=== PATIENT | female | born 1980 | race Caucasian/White ===

== ENCOUNTER → 2018-01-04 11:12 | Outpatient (CLI) | payer OTHER, SELFPAY ==
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
== END ==
PROVIDERS: Family Provider Physician Assistant; PCP Physician Assistant; Visit Provider Physician Assistant
DX: M79.672 Pain in left foot (principal)
CPT/HCPCS: 73630

== ENCOUNTER → 2018-01-13 10:59 | Outpatient (CLI) | payer OTHER, SELFPAY ==
--- NOTE | 2018-01-13 11:01 | DI.RAD.S_ITS ---
PROCEDURE: XR WRIST RT MIN 3V INDICATIONS: Bilateral wrist pain - scaphoid area TECHNIQUE: 4 views of the wrist were acquired. COMPARISON: None. FINDINGS: Bones: No fractures or dislocations. No suspicious bony lesions. Scaphoid view: Normal scaphoid Soft tissues: No suspicious soft tissue calcifications. No displacement of the pronator fat line. IMPRESSION: Normal wrist Dictated by: Paresh Brooke M.D. on 01/13/2018 at 11:31 Approved by: Paresh Brooke M.D. on 01/13/2018 at 11:32
--- NOTE | 2018-01-13 11:01 | DI.RAD.S_ITS ---
PROCEDURE: XR WRIST LT MIN 3V INDICATIONS: Bilateral wrist pain - scaphoid area TECHNIQUE: 4 views of the wrist were acquired. COMPARISON: None. FINDINGS: Bones: No fractures or dislocations. No suspicious bony lesions. Scaphoid view: Normal scaphoid Soft tissues: No suspicious soft tissue calcifications. No displacement of the pronator fat line. IMPRESSION: Normal wrist Dictated by: Paresh Brooke M.D. on 01/13/2018 at 11:30 Approved by: Paresh Brooke M.D. on 01/13/2018 at 11:31
== END ==
PROVIDERS: Family Provider Physician Assistant; PCP Physician Assistant; Visit Provider Physician Assistant
DX: M25.532 Pain in left wrist (principal); M25.531 Pain in right wrist
CPT/HCPCS: 73110

== ENCOUNTER → 2018-01-18 10:14 | Outpatient (CLI) | payer OTHER, SELFPAY ==
[2018-01-18 11:20] LABS: Alanine Aminotransferase 35 IU/L (9-52); Albumin 4.1 g/dL (3.5-5.0); Albumin Globulin Ratio 1.4 (1.0-2.8); Alkaline Phosphatase 47 U/L (38-126); Aspartate Aminotransferase 17 IU/L (14-36); BUN Creatinine Ratio 24.3 (6-22); Bilirubin Total 0.5 mg/dL (0.2-1.3); Blood Urea Nitrogen 17 mg/dL (7-17); Calcium 9.3 mg/dL (8.4-10.2); Carbon Dioxide 26 mmol/L (22-32); Chloride 103 mmol/L (98-107); Cholesterol 221 mg/dL (140-199); Estimated Glomerular Filt Rate > 60.0 mL/min (>60); Glucose 91 mg/dL (70-100); HDL Cholesterol 44 mg/dL (40-60); HEMOLYSIS < 15 (0-50); LDL Cholesterol Calculated 140 mg/dL (<100); Potassium 4.3 mmol/L (3.4-5.1); Sodium 139 mmol/L (137-145); Total Protein 7.1 g/dL (6.3-8.2); Triglycerides 187 mg/dL (35-150)
[2018-01-18 11:32] LABS: Free T4, Direct Thyroxine 0.92 ng/dL (0.78-2.19)
[2018-01-18 11:46] LABS: Thyroid Stimulating Hormone 1.16 uIU/mL (0.47-4.68)
== END ==
PROVIDERS: PCP Physician Assistant; Visit Provider Physician Assistant
DX: Q21.1 Atrial septal defect (principal); E03.8 Other specified hypothyroidism; E06.3 Autoimmune thyroiditis
CPT/HCPCS: 36415; 80053; 80061; 84439; 84443

== ENCOUNTER → 2018-08-13 07:19 | Outpatient (CLI) | payer OTHER, SELFPAY ==
[2018-08-13 09:04] LABS: Free T4, Direct Thyroxine 1.12 ng/dL (0.78-2.19)
[2018-08-13 09:18] LABS: Thyroid Stimulating Hormone 1.35 uIU/mL (0.47-4.68)
== END ==
PROVIDERS: Family Provider Physician Assistant; PCP Physician Assistant; Visit Provider Internal Medicine Endocrinology, Diabetes & Metabolism
DX: E06.3 Autoimmune thyroiditis (principal)
CPT/HCPCS: 36415; 84439; 84443

== ENCOUNTER → 2019-01-19 09:29 | Outpatient (CLI) | payer OTHER, SELFPAY ==
[2019-01-19 11:08] LABS: Alanine Aminotransferase 11 IU/L (9-52); Albumin 4.3 g/dL (3.5-5.0); Albumin Globulin Ratio 1.5 (1.0-2.8); Alkaline Phosphatase 51 U/L (38-126); Aspartate Aminotransferase 18 IU/L (14-36); BUN Creatinine Ratio 16.3 (6-22); Bilirubin Total 0.5 mg/dL (0.2-1.3); Blood Urea Nitrogen 13 mg/dL (7-17); Calcium 9.5 mg/dL (8.4-10.2); Carbon Dioxide 27 mmol/L (22-32); Chloride 104 mmol/L (98-107); Cholesterol 255 mg/dL (140-199); Estimated Glomerular Filt Rate > 60.0 mL/min (>60); Globulin 2.8 g/dL (1.7-4.1); Glucose 96 mg/dL (70-100); HDL Cholesterol 40 mg/dL (40-60); HEMOLYSIS < 15 (0-50); LDL Cholesterol Calculated 157 mg/dL (<100); Potassium 4.9 mmol/L (3.4-5.1); Sodium 140 mmol/L (137-145); Total Protein 7.1 g/dL (6.3-8.2); Triglycerides 288 mg/dL (35-150)
[2019-01-19 11:38] LABS: Thyroid Stimulating Hormone 1.01 uIU/mL (0.47-4.68)
== END ==
PROVIDERS: Family Provider Internal Medicine Endocrinology, Diabetes & Metabolism; PCP Physician Assistant; Visit Provider Physician Assistant
DX: E03.8 Other specified hypothyroidism (principal); E06.3 Autoimmune thyroiditis
CPT/HCPCS: 36415; 80053; 80061; 84439; 84443

== ENCOUNTER → 2019-01-28 11:40 | Outpatient (CLI) | payer OTHER, SELFPAY ==
--- NOTE | 2019-01-28 11:45 | DI.MG.S_ITS ---
BILATERAL DIGITAL SCREENING MAMMOGRAM 3D/2D WITH CAD: 01/28/2019 CLINICAL: Routine screening. Baseline exam. No prior exams were available for comparison. The tissue of both breasts is predominantly fatty. Current study was also evaluated with a Computer Aided Detection (CAD) system. No significant masses, calcifications, or other findings are seen in either breast. IMPRESSION: NEGATIVE There is no mammographic evidence of malignancy. A 1 year screening mammogram is recommended. This exam was interpreted at Station ID: [id number]. NOTE: For mammograms, a report in lay terms will be sent to the patient. Approximately 15% of breast malignancies will not be visualized mammographically. In the management of a palpable breast mass, a negative mammogram must not discourage biopsy of a clinically suspicious lesion. Electronically Signed By: Frankie bryant/vin:01/28/2019 17:05:09 letter sent: Normal Exam ACR BI-RADS Category 1: Negative 3341F
== END ==
PROVIDERS: Family Provider Internal Medicine Endocrinology, Diabetes & Metabolism; PCP Physician Assistant; Visit Provider Physician Assistant
DX: Z12.31 Encounter for screening mammogram for malignant neoplasm of breast (principal)
CPT/HCPCS: 77063; 77067

== ENCOUNTER → 2019-06-24 07:37 | Outpatient (CLI) | payer OTHER, SELFPAY ==
[2019-06-24 09:26] LABS: Cholesterol 239 mg/dL (140-199); HDL Cholesterol 44 mg/dL (40-60); LDL Cholesterol Calculated 157 mg/dL (<100); Triglycerides 191 mg/dL (35-150)
== END ==
PROVIDERS: PCP Physician Assistant; Visit Provider Physician Assistant
DX: E03.8 Other specified hypothyroidism (principal); E06.3 Autoimmune thyroiditis; E78.2 Mixed hyperlipidemia
CPT/HCPCS: 36415; 80061

== ENCOUNTER → 2019-09-10 11:28 | Outpatient (CLI) | payer OTHER, SELFPAY ==
[2019-09-10 13:01] LABS: TSH w/ Reflex to FT4 0.98 uIU/mL (0.47-4.68)
== END ==
PROVIDERS: PCP Physician Assistant; Referring Provider Internal Medicine Endocrinology, Diabetes & Metabolism; Visit Provider Internal Medicine Endocrinology, Diabetes & Metabolism
DX: E06.3 Autoimmune thyroiditis (principal)
CPT/HCPCS: 36415; 84443

== ENCOUNTER → 2020-02-09 10:23 | Outpatient (CLI) | payer OTHER, SELFPAY ==
--- NOTE | 2020-02-09 09:44 | DI.MG.S_ITS ---
BILATERAL DIGITAL SCREENING MAMMOGRAM 3D/2D WITH CAD: 02/09/2020 CLINICAL: Routine screening. Comparison is made to exam dated: 01/28/2019 [facility]. The tissue of both breasts is predominantly fatty. Current study was also evaluated with a Computer Aided Detection (CAD) system. No significant masses, calcifications, or other findings are seen in either breast. There has been no significant interval change. IMPRESSION: NEGATIVE There is no mammographic evidence of malignancy. A 1 year screening mammogram is recommended. This exam was interpreted at Station ID: [id number]. NOTE: For mammograms, a report in lay terms will be sent to the patient. Approximately 15% of breast malignancies will not be visualized mammographically. In the management of a palpable breast mass, a negative mammogram must not discourage biopsy of a clinically suspicious lesion. Electronically Signed By: Emigdio mares/vin:02/09/2020 13:54:06 letter sent: Normal Exam ACR BI-RADS Category 1: Negative 3341F
== END ==
PROVIDERS: PCP Registered Nurse Diabetes Educator; Referring Provider Registered Nurse Diabetes Educator; Visit Provider Physician Assistant
DX: Z12.31 Encounter for screening mammogram for malignant neoplasm of breast (principal)
CPT/HCPCS: 77063; 77067

== ENCOUNTER → 2020-06-25 16:27 | Outpatient (CLI) | payer OTHER, SELFPAY | PROVIDERS: PCP Registered Nurse Diabetes Educator; Visit Provider Registered Nurse | DX: L03.90 Cellulitis, unspecified (principal) | CPT/HCPCS: 87070; 87075; 87205 ==

== ENCOUNTER → 2020-10-10 07:44 | Outpatient (CLI) | payer OTHER, SELFPAY ==
[2020-10-10 08:11] LABS: Add Manual Diff / Slide Review NO; Basophils Absolute Auto 0 /uL (0-100); Basophils Percent Auto 0.3 % (0-2); Eosinophils Absolute Auto 100 /uL (0-450); Hematocrit 36.6 % (36-46); Hemoglobin 12.8 g/dL (12.0-16.0); Lymphocytes Absolute Auto 1300 /uL (1100-4500); Lymphocytes Percent Auto 33.5 % (25-40); Mean Corpuscular Hemoglobin 31.8 PG (26-34); Mean Corpuscular Volume 90.7 fL (80-100); Monocytes Absolute Auto 300 /uL (0-900); Monocytes Percent Auto 7.8 % (3-14); Neutrophils Absolute Auto 2300 /uL (1500-7000); Neutrophils Percent Auto 56.4 % (50-75); Platelet Count 124 X10^3/uL (150-400); Red Blood Cell Count 4.04 X10^6/uL (4.0-5.2); Red Cell Distribution Width 13.7 % (11.6-14.8)
[2020-10-10 08:28] LABS: Alanine Aminotransferase 15 IU/L (<35); Albumin 4.3 g/dL (3.5-5.0); Albumin Globulin Ratio 1.6 (1.0-2.8); Alkaline Phosphatase 49 U/L (38-126); Aspartate Aminotransferase 26 IU/L (14-36); BUN Creatinine Ratio 20.3 (6-22); Bilirubin Total 0.5 mg/dL (0.2-1.3); Blood Urea Nitrogen 16 mg/dL (7-17); Calcium 9.3 mg/dL (8.4-10.2); Carbon Dioxide 26 mmol/L (22-32); Chloride 104 mmol/L (98-107); Cholesterol 227 mg/dL (140-199); Estimated Glomerular Filt Rate > 60.0 mL/min (>60); Globulin 2.7 g/dL (1.7-4.1); Glucose 93 mg/dL (70-100); HDL Cholesterol 44 mg/dL (40-60); HEMOLYSIS < 15 (0-50); LDL Cholesterol Calculated 155 mg/dL (<100); Potassium 4.3 mmol/L (3.4-5.1); Sodium 136 mmol/L (137-145); Triglycerides 141 mg/dL (35-150)
[2020-10-10 09:10] LABS: TSH w/ Reflex to FT4 1.92 uIU/mL (0.47-4.68)
== END ==
PROVIDERS: PCP Registered Nurse Diabetes Educator; Referring Provider Registered Nurse Diabetes Educator; Visit Provider Registered Nurse Diabetes Educator
DX: E78.2 Mixed hyperlipidemia (principal); E03.8 Other specified hypothyroidism; E06.3 Autoimmune thyroiditis
CPT/HCPCS: 36415; 80053; 80061; 84443; 85025

== ENCOUNTER → 2020-11-10 12:21 | Outpatient (CLI) | payer OTHER, SELFPAY ==
[2020-11-10 13:24] LABS: Hematocrit 38.6 % (36-46); Hemoglobin 13.4 g/dL (12.0-16.0); Mean Corpuscular HGB Conc 34.8 % (30-36); Mean Corpuscular Hemoglobin 32.2 PG (26-34); Mean Corpuscular Volume 92.5 fL (80-100); Platelet Count 124 X10^3/uL (150-400); Red Blood Cell Count 4.17 X10^6/uL (4.0-5.2); Red Cell Distribution Width 14.6 % (11.6-14.8); White Blood Cell Count 5.2 X10^3/uL (4.5-11.0)
[2020-11-10 14:56] LABS: Anisocytosis 1+; Neutrophils Absolute Manual 2860 /uL (3000-5900); Total Cells Counted 100
== END ==
PROVIDERS: PCP Registered Nurse Diabetes Educator; Referring Provider Registered Nurse Diabetes Educator; Visit Provider Registered Nurse Diabetes Educator
DX: D69.6 Thrombocytopenia, unspecified (principal)
CPT/HCPCS: 36415; 85025

== ENCOUNTER → 2020-11-15 13:58 | Outpatient (CLI) | payer OTHER, SELFPAY ==
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
[2020-11-15 15:35] LABS: Erythrocyte Sedimentation Rate 10 MM/HR (0-20)
[2020-11-15 15:40] LABS: C-Reactive Protein Quant 0.9 mg/dL (<1.0)
[2020-11-15 15:42] LABS: Rheumatoid Factor < 8.6 IU/mL (<12.0)
[2020-11-18 16:36] LABS: ANA Screen, IFA Positive (.)
[2020-11-19 21:07] LABS: CCP Antibodies IgG/IgA 3 units (0-19)
== END ==
PROVIDERS: PCP Registered Nurse Diabetes Educator; Referring Provider Registered Nurse Diabetes Educator; Visit Provider Registered Nurse Diabetes Educator
DX: M79.641 Pain in right hand (principal); M79.642 Pain in left hand; D69.6 Thrombocytopenia, unspecified; R79.89 Other specified abnormal findings of blood chemistry
CPT/HCPCS: 36415; 73130; 85651; 86038; 86140; 86200; 86430

== ENCOUNTER 2021-02-14 11:24 | Emergency (ER) | payer OTHER, SELFPAY ==
[2021-02-14 11:57] VITALS: BP 127/73; PULSE 90; RESP 14; TEMP 36.3; O2SAT 99; BMI 36.7
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
[2021-02-14 14:48] VITALS: BP 113/71; PULSE 70; RESP 16; O2SAT 99
== END 2021-02-14 15:02 | disposition home or self-care (01) ==
PROVIDERS: Emergency Provider Emergency Medicine; PCP Registered Nurse Diabetes Educator
DX: M62.838 Other muscle spasm (principal); V89.2XXA Person injured in unspecified motor-vehicle accident, traffic, initial encounter
CPT/HCPCS: 72125; 99284

== ENCOUNTER → 2021-02-25 14:38 | Outpatient (CLI) | payer OTHER, SELFPAY ==
--- NOTE | 2021-02-25 14:39 | DI.RAD.S_ITS ---
PROCEDURE: XR LUMBAR SPINE 2-3V INDICATIONS: back pain; injury TECHNIQUE: 3 views of the lumbar spine were acquired. COMPARISON: None. FINDINGS: Bones: 5 [id number] vertebrae are present. Mild levo curvature centered at the L3 level. Mild early disc degeneration at the L5-S1 level.. No vertebral body compression fractures. No suspicious bony lesions. Soft tissues: Overlying bowel gas pattern is normal. No suspicious soft tissue calcifications. IMPRESSION: Mild L5-S1 early disc degeneration. Dictated by: Lyle SALAZAR Interpreted: Zoila Paulino MD on 02/25/2021 at 15:28 Transcribed by: YANNICK on 02/25/2021 at 15:29 Approved by: Zoila Paulino M.D. on 02/25/2021 at 16:33
--- NOTE | 2021-02-25 14:39 | DI.RAD.S_ITS ---
PROCEDURE: XR THORACIC SPINE 2V INDICATIONS: back pain; injury TECHNIQUE: 3 views of the thoracic spine were acquired. COMPARISON: None. FINDINGS: Bones: No fractures or dislocations. No suspicious bony lesions. 12 pairs of ribs are noted, and appear intact where visualized. Trace dextrocurvature centered at the T11 level. Soft tissues: No paravertebral stripe thickening. IMPRESSION: Trace dextrocurvature; otherwise normal T-spine. Dictated by: Lyle Spears [facility] Interpreted: Zoila Paulino MD on 02/25/2021 at 15:29 Transcribed by: YANNICK on 02/25/2021 at 15:29 Approved by: Zoila Paulino M.D. on 02/25/2021 at 16:34
== END ==
PROVIDERS: PCP Registered Nurse Diabetes Educator; Referring Provider Registered Nurse; Visit Provider Registered Nurse
DX: M54.9 Dorsalgia, unspecified (principal); S39.92XA Unspecified injury of lower back, initial encounter; S29.9XXA Unspecified injury of thorax, initial encounter; M51.37 Other intervertebral disc degeneration, lumbosacral region; V89.2XXA Person injured in unspecified motor-vehicle accident, traffic, initial encounter
CPT/HCPCS: 72070; 72100

== ENCOUNTER → 2021-04-04 16:36 | Outpatient (CLI) | payer OTHER, SELFPAY ==
--- NOTE | 2021-04-04 | DI.MG.S_ITS ---
BILATERAL DIGITAL SCREENING MAMMOGRAM 3D/2D WITH CAD: 04/04/2021 CLINICAL: Routine screening. Comparison is made to exams dated: 02/09/2020 mammogram and 01/28/2019 mammogram - [facility]. There are scattered fibroglandular elements in both breasts. Current study was also evaluated with a Computer Aided Detection (CAD) system. There are benign calcifications in both breasts. No significant masses, calcifications, or other findings are seen in either breast. There has been no significant interval change. IMPRESSION: BENIGN There is no mammographic evidence of malignancy. A 1 year screening mammogram is recommended. This exam was interpreted at Station ID: [id number]. NOTE: For mammograms, a report in lay terms will be sent to the patient. Approximately 15% of breast malignancies will not be visualized mammographically. In the management of a palpable breast mass, a negative mammogram must not discourage biopsy of a clinically suspicious lesion. Electronically Signed By: Frankie bryant/vin:04/04/2021 17:13:50 letter sent: Normal Exam ACR BI-RADS Category 2: Benign Finding(s) 3342F
== END ==
PROVIDERS: Family Provider Registered Nurse Diabetes Educator; PCP Registered Nurse Diabetes Educator; Referring Provider Registered Nurse Diabetes Educator; Visit Provider Registered Nurse Diabetes Educator
DX: Z12.31 Encounter for screening mammogram for malignant neoplasm of breast (principal)
CPT/HCPCS: 77063; 77067

== ENCOUNTER 2021-08-19 16:45 | Outpatient (RCR) | payer OTHER, SELFPAY ==
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
== END 2021-08-20 07:31 ==
LOC: PHYS 16:45
PROVIDERS: Family Provider Registered Nurse Diabetes Educator; PCP Registered Nurse Diabetes Educator; Referring Provider Registered Nurse; Visit Provider Registered Nurse
DX: M54.2 Cervicalgia (principal); M54.6 Pain in thoracic spine; M25.69 Stiffness of other specified joint, not elsewhere classified; V43.51XD Car driver injured in collision with sport utility vehicle in traffic accident, subsequent encounter
CPT/HCPCS: 97110; 97140; 97162

== ENCOUNTER → 2022-01-22 12:04 | Outpatient (CLI) | payer OTHER, SELFPAY ==
[2022-01-22 12:49] LABS: Hematocrit 35.5 % (36-46); Hemoglobin 11.8 g/dL (12.0-16.0); Mean Corpuscular HGB Conc 33.3 % (30-36); Mean Corpuscular Hemoglobin 26.7 PG (26-34); Mean Corpuscular Volume 80.4 fL (80-100); Platelet Count 171 X10^3/uL (150-400); Red Blood Cell Count 4.42 X10^6/uL (4.0-5.2); Red Cell Distribution Width 16.7 % (11.6-14.8); White Blood Cell Count 5.1 X10^3/uL (4.5-11.0)
[2022-01-22 13:10] LABS: Alanine Aminotransferase 14 IU/L (<35); Albumin 4.4 g/dL (3.5-5.0); Albumin Globulin Ratio 1.5 (1.0-2.8); Alkaline Phosphatase 55 U/L (38-126); Aspartate Aminotransferase 24 IU/L (14-36); BUN Creatinine Ratio 14.1 (6-22); Bilirubin Total 0.5 mg/dL (0.2-1.3); Blood Urea Nitrogen 13 mg/dL (7-17); Calcium 9.2 mg/dL (8.4-10.2); Carbon Dioxide 27 mmol/L (22-32); Chloride 101 mmol/L (98-107); Cholesterol 312 mg/dL (140-199); Estimated Glomerular Filt Rate > 60 mL/min (>60); Globulin 2.9 g/dL (1.7-4.1); Glucose 93 mg/dL (70-100); HDL Cholesterol 48 mg/dL (40-60); HEMOLYSIS < 15 (0-50); LDL Cholesterol Calculated 213 mg/dL (<100); Potassium 4.4 mmol/L (3.4-5.1); Sodium 136 mmol/L (137-145); Total Protein 7.3 g/dL (6.3-8.2); Triglycerides 256 mg/dL (35-150)
[2022-01-22 13:55] LABS: TSH w/ Reflex to FT4 2.56 uIU/mL (0.47-4.68)
[2022-01-23 12:05] LABS: HEMOLYSIS < 15 (0-50); Iron 74 ug/dL (37-170)
[2022-01-23 12:24] LABS: Percent Iron Saturation 19 % (15-50); Total Iron Binding Capacity 399 ug/dL (265-497)
[2022-01-23 12:28] LABS: Ferritin 7 ng/mL (6-137)
[2022-01-23 12:31] LABS: Transferrin 317 mg/dL (206-381)
== END ==
PROVIDERS: Family Provider Registered Nurse Diabetes Educator; PCP Registered Nurse Diabetes Educator; Referring Provider Registered Nurse Diabetes Educator; Visit Provider Registered Nurse Diabetes Educator
DX: Z00.00 Encounter for general adult medical examination without abnormal findings (principal); E78.5 Hyperlipidemia, unspecified; E03.8 Other specified hypothyroidism; E06.3 Autoimmune thyroiditis
CPT/HCPCS: 36415; 80053; 80061; 82728; 83540; 83550; 84443; 85027

== ENCOUNTER → 2022-02-17 11:54 | Outpatient (CLI) | payer OTHER, SELFPAY ==
[2022-02-17 13:20] LABS: Free T3, Triiodothyronine Free 2.84 pg/mL (2.77-5.27); Free T4, Direct Thyroxine 1.25 ng/dL (0.78-2.19)
[2022-02-19 05:23] LABS: Insulin Level Total 18.3 uIU/mL (2.6-24.9)
== END ==
PROVIDERS: Family Provider Registered Nurse Diabetes Educator; PCP Registered Nurse Diabetes Educator; Referring Provider Registered Nurse Diabetes Educator; Visit Provider Registered Nurse Diabetes Educator
DX: E03.8 Other specified hypothyroidism (principal); E06.3 Autoimmune thyroiditis; E16.1 Other hypoglycemia
CPT/HCPCS: 36415; 83525; 84439; 84481

== ENCOUNTER → 2022-03-12 06:52 | Outpatient (CLI) | payer OTHER, SELFPAY ==
[2022-03-12 09:14] LABS: Thyroid Stimulating Hormone 0.695 uIU/mL (0.47-4.68)
[2022-03-12 15:41] LABS: Free T4, Direct Thyroxine 1.16 ng/dL (0.78-2.19)
[2022-03-18 09:29] LABS: Insulin #3 80.6 uIU/mL (Not Estab.); Insulin #4 74.1 uIU/mL (Not Estab.)
== END ==
PROVIDERS: Family Provider Registered Nurse Diabetes Educator; PCP Registered Nurse Diabetes Educator; Referring Provider Registered Nurse Diabetes Educator; Visit Provider Registered Nurse Diabetes Educator
DX: E03.8 Other specified hypothyroidism (principal); E06.3 Autoimmune thyroiditis; E16.1 Other hypoglycemia
CPT/HCPCS: 36415; 83525; 84439; 84443

== ENCOUNTER → 2022-03-18 15:45 | Outpatient (CLI) | payer OTHER, SELFPAY ==
--- NOTE | 2022-03-18 15:49 | DI.RAD.S_ITS ---
PROCEDURE: XR FINGER RT MIN 2V INDICATIONS: FINGER PAIN TECHNIQUE: AP hand, 2 views of the 4th finger(s) acquired. COMPARISON: None. FINDINGS: Bones: No fractures or dislocations. No suspicious bony lesions. Soft tissues: No suspicious soft tissue calcifications. IMPRESSION: No acute fracture or dislocation. No finding to explain patient's symptoms. Dictated by: Crescencio Peoples M.D. on 03/18/2022 at 17:23 Approved by: Crescencio Peoples M.D. on 03/18/2022 at 17:24
== END ==
PROVIDERS: Family Provider Registered Nurse Diabetes Educator; PCP Registered Nurse Diabetes Educator; Referring Provider Physician Assistant; Visit Provider Physician Assistant
DX: M79.644 Pain in right finger(s) (principal)
CPT/HCPCS: 73140

== ENCOUNTER → 2022-04-02 16:29 | Outpatient (CLI) | payer OTHER, SELFPAY ==
[2022-04-02 17:38] LABS: Add Manual Diff / Slide Review NO; Basophils Absolute Auto 0 /uL (0-100); Basophils Percent Auto 0.4 % (0-2); Eosinophils Absolute Auto 100 /uL (0-450); Eosinophils Percent Auto 2.1 % (2-4); Hematocrit 34.4 % (36-46); Hemoglobin 11.8 g/dL (12.0-16.0); Lymphocytes Absolute Auto 2100 /uL (1100-4500); Lymphocytes Percent Auto 38.7 % (25-40); Mean Corpuscular HGB Conc 34.3 % (30-36); Mean Corpuscular Hemoglobin 28.7 PG (26-34); Mean Corpuscular Volume 83.6 fL (80-100); Monocytes Absolute Auto 300 /uL (0-900); Monocytes Percent Auto 4.9 % (3-14); Neutrophils Absolute Auto 2900 /uL (1500-7000); Neutrophils Percent Auto 53.9 % (50-75); Platelet Count 154 X10^3/uL (150-400); Red Blood Cell Count 4.11 X10^6/uL (4.0-5.2); Red Cell Distribution Width 19.4 % (11.6-14.8); White Blood Cell Count 5.4 X10^3/uL (4.5-11.0)
[2022-04-02 17:50] LABS: Alanine Aminotransferase 13 IU/L (<35); Albumin 4.3 g/dL (3.5-5.0); Albumin Globulin Ratio 1.4 (1.0-2.8); Alkaline Phosphatase 42 U/L (38-126); Aspartate Aminotransferase 22 IU/L (14-36); BUN Creatinine Ratio 20.9 (6-22); Bilirubin Total 0.3 mg/dL (0.2-1.3); Blood Urea Nitrogen 18 mg/dL (7-17); C-Reactive Protein Quant < 0.5 mg/dL (<1.0); Calcium 9.3 mg/dL (8.4-10.2); Carbon Dioxide 25 mmol/L (22-32); Chloride 102 mmol/L (98-107); Estimated Glomerular Filt Rate > 60 mL/min (>60); Globulin 3.1 g/dL (1.7-4.1); Glucose 81 mg/dL (70-100); HEMOLYSIS < 15 (0-50); Potassium 3.8 mmol/L (3.4-5.1); Sodium 138 mmol/L (137-145); Total Protein 7.4 g/dL (6.3-8.2)
[2022-04-02 18:04] LABS: Erythrocyte Sedimentation Rate 8 MM/HR (0-20)
[2022-04-02 18:37] LABS: Free T4, Direct Thyroxine 1.31 ng/dL (0.78-2.19)
[2022-04-02 18:51] LABS: Thyroid Stimulating Hormone 0.061 uIU/mL (0.47-4.68)
== END ==
PROVIDERS: Family Provider Registered Nurse Diabetes Educator; PCP Registered Nurse Diabetes Educator; Referring Provider Specialist/Technologist Athletic Trainer; Visit Provider Specialist/Technologist Athletic Trainer
DX: L40.50 Arthropathic psoriasis, unspecified (principal); E03.8 Other specified hypothyroidism; E06.3 Autoimmune thyroiditis
CPT/HCPCS: 36415; 80053; 84439; 84443; 85025; 85651; 86140

== ENCOUNTER → 2022-04-07 07:22 | Outpatient (CLI) | payer OTHER, SELFPAY ==
--- NOTE | 2022-04-07 | DI.MG.S_ITS ---
BILATERAL DIGITAL SCREENING MAMMOGRAM 3D/2D WITH CAD: 04/07/2022 CLINICAL: Routine screening. Comparison is made to exams dated: 04/04/2021 mammogram, 02/09/2020 mammogram, and 01/28/2019 mammogram - [facility]. There are scattered areas of fibroglandular density in both breasts (category b / 25%-50% glandular tissue). Current study was also evaluated with a Computer Aided Detection (CAD) system. There are benign calcifications in both breasts. No significant masses, calcifications, or other findings are seen in either breast. There has been no significant interval change. IMPRESSION: BENIGN There is no mammographic evidence of malignancy. A 1 year screening mammogram is recommended. Based on the Tyrer Cuzick model (a risk assessment model) the patient's lifetime risk is 8.7% and her 10 year risk is 1.4%. According to the ACR, ACS, and NCCN guidelines, an annual breast MRI exam along with mammogram is recommended if the patient's lifetime risk is 20% or greater. This exam was interpreted at Station ID: [id number]. NOTE: For mammograms, a report in lay terms will be sent to the patient. Approximately 15% of breast malignancies will not be visualized mammographically. In the management of a palpable breast mass, a negative mammogram must not discourage biopsy of a clinically suspicious lesion. Electronically Signed By: Carlos Ortiz M.D., jr/vin:04/07/2022 08:44:55 letter sent: Normal Exam ACR BI-RADS Category 2: Benign Finding(s) [id number]
== END ==
PROVIDERS: Family Provider Registered Nurse Diabetes Educator; PCP Registered Nurse Diabetes Educator; Referring Provider Registered Nurse Diabetes Educator; Visit Provider Registered Nurse Diabetes Educator
DX: Z12.31 Encounter for screening mammogram for malignant neoplasm of breast (principal)
CPT/HCPCS: 77063; 77067

== ENCOUNTER → 2022-04-28 09:55 | Outpatient (CLI) | payer OTHER, SELFPAY ==
--- NOTE | 2022-04-28 09:56 | DI.RAD.S_ITS ---
PROCEDURE: XR CHEST 2V INDICATIONS: Cough TECHNIQUE: 2 views of the chest were acquired. COMPARISON: Merged with [facility], CHEST 1 VIEW, 03/29/2015, 19:20. Merged with [facility], CHEST 1 VIEW, 03/06/2015, 16:29. FINDINGS: Surgical changes and devices: None. Lungs and pleura: Lungs are clear. No pleural effusions or pneumothorax. Mediastinum: Mediastinal contours are normal. Heart size is normal. Bones and chest wall: No suspicious bony abnormalities. Soft tissues appear unremarkable. IMPRESSION: No acute cardiopulmonary abnormality. Dictated by: Donnie Green M.D. on 04/28/2022 at 14:02 Approved by: Donnie Green M.D. on 04/28/2022 at 14:04
== END ==
PROVIDERS: Family Provider Registered Nurse Diabetes Educator; PCP Registered Nurse Diabetes Educator; Referring Provider Nurse Practitioner Family; Visit Provider Nurse Practitioner Family
DX: R05.9 Cough, unspecified (principal)
CPT/HCPCS: 71046

== ENCOUNTER → 2022-05-23 15:54 | Outpatient (CLI) | payer OTHER, SELFPAY ==
[2022-05-23 16:46] LABS: Influenza A - CEPHEID Flu A NEGATIVE (NEGATIVE); Influenza B - CEPHEID Flu B NEGATIVE (NEGATIVE); Respiratory Syncytial Virus Negative (Negative)
[2022-05-23 16:54] LABS: COVID-19 CEPHEID 4-PLEX PCR Negative (Negative)
== END ==
PROVIDERS: Family Provider Registered Nurse Diabetes Educator; PCP Registered Nurse Diabetes Educator; Visit Provider Family Medicine
DX: R05.9 Cough, unspecified (principal); R09.81 Nasal congestion
CPT/HCPCS: 0241U

== ENCOUNTER → 2022-06-25 15:15 | Outpatient (CLI) | payer OTHER, SELFPAY ==
[2022-06-25 17:17] LABS: COVID19 -Nasal RAPID Negative (Negative)
[2022-06-25 18:29] LABS: Thyroid Stimulating Hormone 0.252 uIU/mL (0.47-4.68)
== END ==
PROVIDERS: Obstetrics & Gynecology; Family Provider Registered Nurse Diabetes Educator; PCP Registered Nurse Diabetes Educator; Referring Provider Registered Nurse Diabetes Educator; Visit Provider Registered Nurse Diabetes Educator
DX: E03.8 Other specified hypothyroidism (principal); E06.3 Autoimmune thyroiditis; Z01.812 Encounter for preprocedural laboratory examination; Z20.822 Contact with and (suspected) exposure to COVID-19
CPT/HCPCS: 36415; 84443; 87635

== ENCOUNTER 2022-06-26 08:35 | Day surgery (SDC) | payer OTHER, SELFPAY ==
[2022-06-25 13:29] VITALS: BMI 39.6
[2022-06-26] VITALS (16 sets, daily range): BP systolic 91–158; BP diastolic 55–78; PULSE 79–108; RESP 9–20; TEMP 34.8–36.6; O2SAT 93–100; BMI 39.6
[2022-06-26] MEDS: LACTATED RINGERS 1,000 ML 42 ML IV ×2 (08:59→11:19)
[2022-06-26] MEDS: CEFAZOLIN 2 GM/100 ML PREMIX 100 ML IV (09:38)
--- NOTE | 2022-06-26 09:40 | PM.PREOP ---
Pre-operative Note COVID-19 COVID-19 status: Negative Result date/Date tested (Pos, Neg/Pending): 06/25/22 Criteria for continued procedure: Non-surgical alternatives not available or appropriate per current SOC Interval Note History & Physical reviewed/Exam performed by Physician: Yes Changes to H&P: No H&P completed within 30 days and has changed as indicated here:: 06/25/22
--- NOTE | 2022-06-26 10:12 | SUR.OPER ---
Lithotomy on padded OR bed, head on pillow, arms secured on padded arm boards at <90 degrees abduction. Legs secured in padded yellow fins stirrups.
[2022-06-26] MEDS: EPINEPHrine 1 MG/ML 0.3 MG INJ (11:24)
[2022-06-26] MEDS: BUPIVACAINE 0.25% (PF) VIAL 60 ML INJ (11:26)
--- NOTE | 2022-06-26 11:56 | P.OP_ITS ---
Operative Date/Time/Diagnoses Date of procedure: 06/26/22 Time of procedure: 11:56 Pre-op diagnosis: Symptomatic cystocele and rectocele Stress urinary incontinence Increased urethrovesical angle with Valsalva Post-op diagnosis: same Procedure & Clinicians Procedure: Procedures Operation Date: 06/26/22 09:45 Actual Procedure Side Surgeon p Anterior/Posterior Repair Claritza Mercedes MD s TVT sling with cystoscopy Claritza Mercedes MD Indications: Symptomatic cystocele and rectocele Stress urinary incontinence Increased urethrovesical angle with Valsalva Surgeon: Claritza Mercedes Engineer Technician: Hallie Smith Anesthesia Type: General and Local Operative Notes Findings: Third-degree cystocele and rectocele Increased urethrovesical angle with Valsalva Closure Type: primary Specimen(s): none Applied: catheter (To continuous drainage) Estimated blood loss (mL): 100 Blood products transfused: none Procedure in detail: The patient was taken to the operating room where she was placed in the dorsal supine position. After adequate general endotracheal anesthesia was achieved, she was placed in the dorsal lithotomy position, and prepped and draped in the usual sterile fashion. A timeout was performed. A weighted speculum was placed into the vagina. 2 Allis clamps were placed at the apex of the cystocele. 6 mL of half percent Marcaine with epinephrine were injected and an incision was made with a #10 blade between the 2 Allis clamps. Wide Allis clamps were placed on the midline of the cystocele approximately 5. The mucosa was undermined using the Metzenbaum scissors and the mucosa incised in the midline moving the wide Allis clamps to the edges of the mucosa. The mucosa was dissected off the underlying fascia using an open moistened Ray-Rachel and a #10 blade. The fascia was reapproximated with 0 Vicryl with a series of horizontal mattress sutures. The excess vaginal mucosa was excised. The mucosa was closed using simple interrupted sutures with 2-0 Vicryl including the underlying fascia to close the space. The weighted speculum was removed from the vagina. Allis clamps were placed at the mucocutaneous junction at the introitus. 6 mL of half perce nt Marcaine with epinephrine were injected. An incision was made with a #10 blade between the 2 Allis clamps, and a triangular piece of skin and underlying subcutaneous tissue was removed. Allis clamps were placed in the midline of the rectocele. 10 mL of half percent Marcaine with epinephrine were injected submucosally. The mucosa was undermined using the Metzenbaum scissors and the mucosa incised in the midline, moving the wide Allis clamps to the mucosal edges. The underlying fascia was dissected off of the mucosa using an open moistened Ray-Rachel and a #10 blade. The fascia was reapproximated using 0 Vicryl with a series of horizontal mattress sutures. The excess vaginal mucosa was excised. The mucosa was closed using a series of simple interrupted sutures with 2-0 Vicryl including the underlying fascia to close the space. On the perineum 0 Vicryl was used to reapproximate the levator muscle. The subcutaneous layer was closed with 2-0 Vicryl. The skin was closed with 3-0 chromic in a subcuticular fashion. Hemostasis was achieved. The bladder was empty. 100 mL of the dilute quarter percent Marcaine with epinephrine were placed into the space of Retzius behind the pubic symphysis using a # 20 spinal needle. A weighted speculum was placed into the vagina. 2 Allis clamps were placed lateral to the urethral meatus approximately 1 cm distal. 3 mL of a dilute quarter percent Marcaine were placed submucosally. A 1 cm incision was made 1.5 cm away from the urethral meatus. This was dissected out laterally with the Metzenbaum scissors. A rigid catheter was placed into the bladder. With the bladder neck retracted away from the patient's right side 10 mL of the dilute local were placed aiming towards the patient's right shoulder up behind the pubic symphysis. This was repeated on the patient's left side, with the bladder neck retracted away from the patient's left side. After the TVT was loaded and with the bladder neck retracted away from the patient's right side the TVT was directed towards the patient's shoulder on the right side, perforating the urogenital diaphragm, and then directed up behind the pubic symphysis and the introducer came out approximately 2 cm lateral to the midline on the left side. A small 3 mm pippa in the skin was made and the introducer was brought up and grasped with a [place]. This was repeated on the patient's left side with the bladder neck retracted away from the patient's left side. The rigid portion of the catheter was removed. The bladder was filled with 240 mL of sterile saline. A cystoscopy was performed and there was no TVT or introducer visible in the bladder. The 2 introducers were pulled up with care not to overtighten the TVT. The patient was made to cough and initially there was a spurt of fluid from the urethral meatus. The TVT was pulled slightly. A second cough produced no leakage. The TVT was cut below the skin edge, with care not to overtighten. Ge scissors were placed between the TVT and urethra to prevent tension. The mucosa was closed with 3-0 Vicryl with a running interlocking suture. Hemostasis was achieved. Dermabond was placed over the suprapubic incisions. A rectal exam was performed and there were no sutures palpable in the rectum. A Betadine moistened vaginal packing was placed into the vagina. The catheter was hooked to a Valadez bag. Sponge, lap, and instrument count were correct x-2. The patient tolerated the procedure well, was taken to PACU in stable condition. Complications: none Post-operative Condition: stable Disposition: PACU Plan for aftercare: To acute care after recovery
[2022-06-26] MEDS: OXYCODONE IR 5 MG TABLET PO ×3 (12:26→18:54)
[2022-06-26] MEDS: ACETAMINOPHEN 325 MG TABLET 975 MG PO (13:14)
--- NOTE | 2022-06-26 13:37 | SUR.PHASEI ---
Assumed care. Holding for room placement. Call light within reach. Spouse present. Abd sites BI DEVELOPER CDI. Stephanie pad CDI.
--- NOTE | 2022-06-26 14:18 | SUR.PHASEI ---
Patient transferred to the floor with belongings bag and phone. VS stable. Report given to Jose. Abd sites and micheline-pad CDI. IV saline locked.
[2022-06-26] MEDS: IBUPROFEN 600 MG TABLET PO ×2 (15:55→20:34)
[2022-06-26] MEDS: LACTATED RINGERS 1,000 ML 100 ML IV (15:56)
[2022-06-26] MEDS: ACETAMINOPHEN 325 MG TABLET 650 MG PO ×2 (15:56→20:34)
[2022-06-26] MEDS: LIOTHYRONINE 5 MCG TABLET 2.5 MCG PO (20:35)
[2022-06-26] MEDS: DOCUSATE 100 MG CAPSULE 200 MG PO (20:35)
[2022-06-26] MEDS: NABUMETONE 500 MG TABLET PO (20:36)
[2022-06-27] MEDS: LACTATED RINGERS 1,000 ML 100 ML IV (02:11)
[2022-06-27] MEDS: ACETAMINOPHEN 325 MG TABLET 650 MG PO ×2 (02:11→08:23)
[2022-06-27] MEDS: IBUPROFEN 600 MG TABLET PO ×2 (02:11→08:23)
[2022-06-27] MEDS: LEVOTHYROXINE 75 MCG TABLET PO (05:00)
[2022-06-27] MEDS: OXYCODONE IR 5 MG TABLET PO ×2 (05:02→10:43)
[2022-06-27 05:06] VITALS: BP 98/53; PULSE 68; RESP 20; TEMP 36.2; O2SAT 97
[2022-06-27 06:36] LABS: Add Manual Diff / Slide Review NO; Basophils Absolute Auto 0 /uL (0-100); Basophils Percent Auto 0.1 % (0-2); Eosinophils Absolute Auto 0 /uL (0-450); Hematocrit 31.8 % (36-46); Hemoglobin 10.6 g/dL (12.0-16.0); Lymphocytes Absolute Auto 1100 /uL (1100-4500); Lymphocytes Percent Auto 11.9 % (25-40); Mean Corpuscular HGB Conc 33.4 % (30-36); Mean Corpuscular Hemoglobin 30.1 PG (26-34); Mean Corpuscular Volume 90.3 fL (80-100); Monocytes Absolute Auto 400 /uL (0-900); Monocytes Percent Auto 4.6 % (3-14); Neutrophils Absolute Auto 7600 /uL (1500-7000); Neutrophils Percent Auto 83.4 % (50-75); Platelet Count 151 X10^3/uL (150-400); Red Blood Cell Count 3.52 X10^6/uL (4.0-5.2); Red Cell Distribution Width 19.3 % (11.6-14.8); White Blood Cell Count 9.1 X10^3/uL (4.5-11.0)
[2022-06-27] MEDS: MAGNESIUM HYDROXIDE 30 ML UDC PO (08:22)
[2022-06-27] MEDS: LIOTHYRONINE 5 MCG TABLET 2.5 MCG PO (08:23)
[2022-06-27] MEDS: DOCUSATE 100 MG CAPSULE 200 MG PO (08:23)
[2022-06-27] MEDS: ESCITALOPRAM 10 MG TABLET PO (08:23)
[2022-06-27 08:30] VITALS: BP 103/65; PULSE 71; RESP 16; TEMP 36.1; O2SAT 100
--- NOTE | 2022-06-27 08:57 | CM.DANOTE ---
DCP Assessment: Payor confirmed: Ramona PCP confirmed: Juan Holder MD Pt is a 41 y.o. F who presented to the hospital for a scheduled surgery with Dr. Mercedes. Pt brought up to the floor post op for further management and evaluation of surgical procedure. DCP met with pt this morning to discuss d/c needs. Pt sitting up in bed eating breakfast. DCP introduced herself and role. Pt spouse at the bedside. Pt independent at baseline and lives with her spouse, Zander, in a house in [place]. Pt currently still working. Pt denies DME use. Pt spouse to transport pt home upon discharge. No needs identified. White board updated. Pt thankful for discussion. P: Anticipate discharge home via spouse POV today. Adele Hamm RN/TESSA Discharge Planning/Care Management CM Discharge Assessment Start: 06/27/22 08:56 Freq: Status: Active Protocol: Document 06/27/22 08:56 DEANNE (Rec: 06/27/22 08:57 [id number]) Discharge Planning Assessment Assigned First Cook Adele Hamm RN/TESSA Advance Directives? No History Provided By Patient,Medical Record Prior Living Arrangements House Household Members spouse Type of transporation used prior to Drives own vehicle admit Independent with ADL's Yes Is patient alert and oriented? Yes Discharge Plan Home Transportation Arrangement Spouse POV Referrals Initiated None needed Whiteboard Updated in Patient Room with Yes name and ext. # of First Cook Comment Instructed to call Review Status In Process Please Provide Date Initial DC 06/27/22 Assessment Was Performed Next Review Type Continued Stay Review Pre-Anesthesia Assessment Start: 06/25/22 13:29 Freq: Status: Complete Protocol: Document 06/25/22 13:29 CAB (Rec: 06/25/22 13:38 [facility] [id number]) Pre-Anesthesia Assessment Patient Information Reviewed Via Chart Review Comment COVID screen @ 06/25/22 Primary Care Provider Sravan Tristan Seen Specialist in Last 12 Months Yes Specialist Seen Shop Fitter,Sleep specialist Primary Language Venezuelan Height 152.4 cm Weight 92.079 kg Body Mass Index (BMI) 39.6 Barriers to Learning None Anesthesia Review Requested No alcohol intake current alcohol intake frequency holidays/special occasions only Smoking Status Never smoker Substance Use Type does not use Patient is completely paralyzed or No completely immobile Mental Status Oriented to own ability Hx Sleep Apnea Yes: Mild Currently Taking a Beta [place] No Anti-Coagulant Therapy No Cardiac Testing No Hx Pacemaker/ICD No Pacemaker Rep Required? No Cardiac Clearance Received Not Applicable Urinary Catheter Present No Hx Urinary Self Catheterization No Diabetes No Patient No Lactating No Received a COVID vaccine? Yes Marital Status Lives With spouse Patient Discharge Plan Description Return Home Advance Directives? No
--- NOTE | 2022-06-27 11:17 | PC.NURSE ---
Day shift: Pt left unit via WC at approx 1110. Taken to car that her Spouse will be driving. Medicated per SEP and pain well controlled. op-sites w/ no s/s of infection. Paperwork signed and all questions answered. Pt has all personal belongings. Spouse in room for d/c teachings. scripts sent electronic to Pt's pharmacy.
== END 2022-06-27 11:19 | disposition home or self-care (01) ==
LOC: OR 08:36 → AC 14:04
PROVIDERS: Family Provider Registered Nurse Diabetes Educator; PCP Registered Nurse Diabetes Educator; Referring Provider Obstetrics & Gynecology; Visit Provider Obstetrics & Gynecology
PROC: (CPT 57288; principal; 2022-06-26 09:45)
PROC: 0TSD0ZZ Reposition Urethra, Open Approach (ICD-10-PCS; CPT 57288; 2022-06-26 09:45)
DX: N81.10 Cystocele, unspecified (principal); N81.6 Rectocele; N39.3 Stress incontinence (female) (male)
CPT/HCPCS: 57288; 57260; 36415; 81025; 85025; C1771; J0171; J0330; J0690; J1100; J1885; J2250; J2405; J2704; J3010

== ENCOUNTER → 2022-10-20 10:42 | Outpatient (CLI) | payer OTHER, SELFPAY ==
[2022-06-26 14:06] VITALS: BMI 39.6
[2022-10-20 13:45] LABS: TSH w/ Reflex to FT4 1.77 uIU/mL (0.47-4.68)
== END ==
PROVIDERS: Family Provider Registered Nurse Diabetes Educator; PCP Registered Nurse Diabetes Educator; Referring Provider Registered Nurse Diabetes Educator; Visit Provider Registered Nurse Diabetes Educator
DX: E03.8 Other specified hypothyroidism (principal); E06.3 Autoimmune thyroiditis
CPT/HCPCS: 36415; 84443

== ENCOUNTER → 2022-11-01 14:35 | Outpatient (CLI) | payer OTHER, SELFPAY ==
[2022-06-26 14:06] VITALS: BMI 39.6
== END ==
PROVIDERS: Family Provider Registered Nurse Diabetes Educator; PCP Registered Nurse Diabetes Educator; Visit Provider Nurse Practitioner Family
DX: K13.79 Other lesions of oral mucosa (principal)
CPT/HCPCS: 87070

== ENCOUNTER → 2023-01-26 12:05 | Outpatient (CLI) | payer OTHER, SELFPAY ==
[2022-06-26 14:06] VITALS: BMI 39.6
== END ==
PROVIDERS: Family Provider Registered Nurse Diabetes Educator; PCP Registered Nurse Diabetes Educator; Visit Provider Student in an Organized Health Care Education/Training Program
DX: R30.0 Dysuria (principal)
CPT/HCPCS: 87077; 87086; 87186

== ENCOUNTER → 2023-04-08 16:51 | Outpatient (CLI) | payer OTHER, SELFPAY ==
[2022-06-26 14:06] VITALS: BMI 39.6
--- NOTE | 2023-04-08 16:52 | DI.MG.S_ITS ---
BILATERAL DIGITAL SCREENING MAMMOGRAM 3D/2D WITH CAD: 04/08/2023 CLINICAL: Routine screening. Comparison is made to exams dated: 04/07/2022 mammogram, 04/04/2021 mammogram, and 02/09/2020 mammogram - [facility]. There are scattered areas of fibroglandular density in both breasts (category b / 25%-50% glandular tissue). Current study was also evaluated with a Computer Aided Detection (CAD) system. No significant masses, calcifications, or other findings are seen in either breast. There has been no significant interval change. IMPRESSION: NEGATIVE There is no mammographic evidence of malignancy. A 1 year screening mammogram is recommended. Based on the Tyrer Cuzick model (a risk assessment model) the patient's lifetime risk is 8.7% and her 10 year risk is 1.5%. According to the ACR, ACS, and NCCN guidelines, an annual breast MRI exam along with mammogram is recommended if the patient's lifetime risk is 20% or greater. This exam was interpreted at Station ID: [id number]. NOTE: For mammograms, a report in lay terms will be sent to the patient. Approximately 15% of breast malignancies will not be visualized mammographically. In the management of a palpable breast mass, a negative mammogram must not discourage biopsy of a clinically suspicious lesion. Electronically Signed By: Taisha teresa/vin:04/09/2023 14:10:10 letter sent: Normal Exam ACR BI-RADS Category 1: Negative 3341F
== END ==
PROVIDERS: Family Provider Registered Nurse Diabetes Educator; PCP Registered Nurse Diabetes Educator; Referring Provider Registered Nurse Diabetes Educator; Visit Provider Registered Nurse Diabetes Educator
DX: Z12.31 Encounter for screening mammogram for malignant neoplasm of breast (principal)
CPT/HCPCS: 77063; 77067

== ENCOUNTER → 2023-08-19 15:54 | Outpatient (CLI) | payer OTHER, SELFPAY ==
[2022-06-26 14:06] VITALS: BMI 39.6
--- NOTE | 2023-08-19 15:57 | DI.RAD.S_ITS ---
PROCEDURE: XR CHEST 2V INDICATIONS: Cough TECHNIQUE: 2 views of the chest were acquired. COMPARISON: [facility], CR, XR CHEST 2V, 04/28/2022, 9:55. FINDINGS: Surgical changes and devices: None. Lungs and pleura: Lungs are clear. No pleural effusions or pneumothorax. Mediastinum: Mediastinal contours are normal. Heart size is normal. Bones and chest wall: No suspicious bony abnormalities. Soft tissues appear unremarkable. IMPRESSION: No acute cardiopulmonary abnormality is seen. Dictated by: Camden Paredes M.D. on 08/19/2023 at 19:01 Approved by: Camden Paredes M.D. on 08/19/2023 at 19:01
== END ==
PROVIDERS: Family Provider Registered Nurse Diabetes Educator; PCP Registered Nurse Diabetes Educator; Referring Provider Nurse Practitioner Family; Visit Provider Nurse Practitioner Family
DX: R05.9 Cough, unspecified (principal)
CPT/HCPCS: 71046

== ENCOUNTER → 2023-09-21 18:42 | Outpatient (CLI) | payer OTHER, SELFPAY ==
[2022-06-26 14:06] VITALS: BMI 39.6
[2023-09-21 19:49] LABS: Influenza A - CEPHEID Flu A NEGATIVE (NEGATIVE); Influenza B - CEPHEID Flu B NEGATIVE (NEGATIVE); Respiratory Syncytial Virus Negative (Negative)
[2023-09-21 19:52] LABS: COVID-19 CEPHEID 4-PLEX PCR Negative (Negative)
== END ==
PROVIDERS: Family Provider Registered Nurse Diabetes Educator; PCP Registered Nurse Diabetes Educator; Visit Provider Physician Assistant Surgical
DX: R06.02 Shortness of breath (principal); R05.9 Cough, unspecified
CPT/HCPCS: 0241U

== ENCOUNTER → 2023-09-22 08:11 | Outpatient (CLI) | payer OTHER, SELFPAY ==
[2022-06-26 14:06] VITALS: BMI 39.6
--- NOTE | 2023-09-22 08:13 | DI.RAD.S_ITS ---
PROCEDURE: XR CHEST 2V INDICATIONS: cough, wheezing TECHNIQUE: 2 views of the chest were acquired. COMPARISON: [facility], CR, XR CHEST 2V, 08/19/2023, 16:02. [facility], CR, XR CHEST 2V, 04/28/2022, 9:55. FINDINGS: Surgical changes and devices: None. Lungs and pleura: Bilateral patchy airspace opacity, new. No pleural effusions or pneumothorax. Mediastinum: Mediastinal contours are normal. Heart size is normal. Bones and chest wall: No suspicious bony abnormalities. Soft tissues appear unremarkable. IMPRESSION: New bilateral patchy airspace opacity. Findings suspicious for pneumonia. Atelectasis could have a similar appearance but is felt to be less likely. Recommend short-term follow-up imaging. CT chest may be helpful for further evaluation. Dictated by: Rashawn Daniel M.D. on 09/22/2023 at 9:24 Approved by: Rashawn Daniel M.D. on 09/22/2023 at 9:26
== END ==
PROVIDERS: Family Provider Registered Nurse Diabetes Educator; PCP Registered Nurse Diabetes Educator; Referring Provider Physician Assistant Surgical; Visit Provider Physician Assistant Surgical
DX: R05.9 Cough, unspecified (principal)
CPT/HCPCS: 71046

== ENCOUNTER → 2023-09-23 10:18 | Outpatient (CLI) | payer OTHER, SELFPAY ==
[2022-06-26 14:06] VITALS: BMI 39.6
--- NOTE | 2023-09-23 10:19 | DI.CT.S_ITS ---
PROCEDURE: CT CHEST WO CON INDICATIONS: further eval possible pneumonia TECHNIQUE: Noncontrast 5 mm thick sections acquired from the pulmonary apices to the posterior costophrenic angles. 1 mm lung window, 5 mm thick coronal and sagittal and 7 mm axial MIP reformats were then acquired. For radiation dose reduction, the following was used: automated exposure control, adjustment of mA and/or kV according to patient size. COMPARISON: None. FINDINGS: Image quality: Diagnostic. Lower Neck: No enlarged lymph nodes. Thyroid: No thyroid nodules which require sonographic follow up, per consensus guidelines. Axillae: Prominent left axillary chain lymph nodes, largest measuring 1.1 centimeter (series 2, image 16). Chest Wall: Unremarkable. Bones: Unremarkable. Lungs and Pleura: Left upper lobe centrilobular and tree-in-bud nodules, with associated ground-glass and early consolidation. Heart: Heart size is normal. No pericardial effusion. Thoracic Vessels: The aorta and pulmonary arteries demonstrate normal size. Mediastinum and Tiffanie: No enlarged lymph nodes. Esophagus: No wall thickening. No hiatal hernia. Upper Abdomen: Visualized upper abdomen solid organs and bowel loops appear normal. IMPRESSION: Early bronchopneumonia of the left upper lobe. Prominent left axillary chain lymph nodes. Findings could be reactive, less likely jeremiah disease such as lymphoma , melanoma or breast cancer. Consider further workup at a diagnostic breast Center. Dictated by: Bry Muñoz M.D. on 09/23/2023 at 11:02 Approved by: Bry Muñoz M.D. on 09/23/2023 at 11:05
== END ==
PROVIDERS: Family Provider Registered Nurse Diabetes Educator; PCP Registered Nurse Diabetes Educator; Referring Provider Registered Nurse Diabetes Educator; Visit Provider Registered Nurse Diabetes Educator
DX: J18.0 Bronchopneumonia, unspecified organism (principal)
CPT/HCPCS: 71250

== ENCOUNTER → 2023-10-07 08:45 | Outpatient (CLI) | payer OTHER, SELFPAY ==
[2022-06-26 14:06] VITALS: BMI 39.6
--- NOTE | 2023-10-07 | DI.MG.S_ITS ---
UNILATERAL LEFT DIGITAL DIAGNOSTIC MAMMOGRAM 3D/2D: 10/07/2023 CLINICAL: Enlarged Lymph nodes Seen on Cat Scan 09/23/23. Pneumonia since 7 weeks. Antiobiotics (first dose) [address] Comparison is made to exams dated: 04/08/2023 mammogram, 04/07/2022 mammogram, 04/04/2021 mammogram, and 02/09/2020 mammogram - [facility]. There are scattered areas of fibroglandular density in the left breast (category b / 25%-50% glandular tissue). No significant masses, calcifications, or other findings are seen in the breast. Small axillary lymph nodes are not significantly changed mammographically. IMPRESSION: INCOMPLETE: NEEDS ADDITIONAL IMAGING EVALUATION No mammographic evidence of malignancy. A targeted ultrasound is recommended and will immediately follow. Based on the Tyrer Cuzick model (a risk assessment model) the patient's lifetime risk is 8.7% and her 10 year risk is 1.5%. According to the ACR, ACS, and NCCN guidelines, an annual breast MRI exam along with mammogram is recommended if the patient's lifetime risk is 20% or greater. This exam was interpreted at Station ID: [id number]. NOTE: For mammograms, a report in lay terms will be sent to the patient. Approximately 15% of breast malignancies will not be visualized mammographically. In the management of a palpable breast mass, a negative mammogram must not discourage biopsy of a clinically suspicious lesion. Electronically Signed By: Rashawn Daniel M.D. slc/:10/07/2023 09:28:12 ACR BI-RADS Category 0: Incomplete 3340F
--- NOTE | 2023-10-07 08:45 | DI.US.S_ITS ---
ULTRASOUND OF LEFT BREAST AND AXILLA: 10/07/2023 CLINICAL: Palpable left axilla lump. Comparison is made to exams dated: 10/07/2023 mammogram, 04/08/2023 mammogram, 04/07/2022 mammogram, and 04/04/2021 mammogram - [facility]. CT chest 09/23/2023. Color flow and real-time ultrasound of the left breast axilla were performed. Nelson scale images of the real-time examination were reviewed. There is a 2.2 cm x 1.8 cm x 1 cm oval enlarged lymph node with eccentric cortical thickening with a circumscribed margin in the left axilla. Cortex measures 0.7 cm. Fatty hilum is preserved. Additional small lymph nodes are seen. IMPRESSION: PROBABLY BENIGN The 1 cm short axis diameter enlarged lymph node with eccentric cortical thickening is probably benign. Favor reactive etiology over malignancy. Prior CT demonstrates left upper lobe pneumonia. A follow-up ultrasound in 3 months is recommended. Exam findings were conveyed to the patient. Patient is advised to monitor for significant change. Clinical follow-up as needed. This exam was interpreted at Station ID: [id number]. Electronically Signed By: Rashawn Daniel M.D. slc/:10/07/2023 09:37:11 letter sent: Followup Recommended Ultrasound BI-RADS: 3 Probably benign
== END ==
LOC: MAMMO 08:45
PROVIDERS: Family Provider Registered Nurse Diabetes Educator; PCP Registered Nurse Diabetes Educator; Referring Provider Registered Nurse Diabetes Educator; Visit Provider Registered Nurse Diabetes Educator
DX: R92.2 Inconclusive mammogram (principal); R92.322 Mammographic fibroglandular density, left breast; R93.89 Abnormal findings on diagnostic imaging of other specified body structures; R59.0 Localized enlarged lymph nodes
CPT/HCPCS: 76882; 77065; G0279

== ENCOUNTER → 2023-10-26 16:34 | Outpatient (CLI) | payer OTHER, SELFPAY ==
[2022-06-26 14:06] VITALS: BMI 39.6
--- NOTE | 2023-10-26 16:35 | DI.RAD.S_ITS ---
PROCEDURE: XR CHEST 2V INDICATIONS: reeval TECHNIQUE: 2 views of the chest were acquired. COMPARISON: [facility], CT, CT CHEST WO CON, 09/23/2023, 10:32. [facility], CR, XR CHEST 2V, 09/22/2023, 8:16. FINDINGS: Surgical changes and devices: None. Lungs and pleura: Lungs appear clear. No silhouetting. No pleural effusions or pneumothorax. Mediastinum: Mediastinal contours are unchanged. Heart size is normal. Bones and chest wall: No suspicious bony abnormalities. Soft tissues appear unremarkable. IMPRESSION: Resolved airspace opacity. Dictated by: Rashawn Daniel M.D. on 10/26/2023 at 17:14 Approved by: Rashawn Daniel M.D. on 10/26/2023 at 17:17
[2023-10-26 17:54] LABS: TSH w/ Reflex to FT4 4.11 uIU/mL (0.47-4.68)
== END ==
LOC: LAB 16:34
PROVIDERS: Family Provider Registered Nurse Diabetes Educator; PCP Registered Nurse Diabetes Educator; Referring Provider Registered Nurse Diabetes Educator; Visit Provider Registered Nurse Diabetes Educator
DX: J18.9 Pneumonia, unspecified organism (principal); E03.8 Other specified hypothyroidism; E06.3 Autoimmune thyroiditis
CPT/HCPCS: 36415; 71046; 84443

== ENCOUNTER → 2023-11-19 16:42 | Outpatient (CLI) | payer OTHER, SELFPAY ==
[2022-06-26 14:06] VITALS: BMI 39.6
[2023-11-19 21:21] LABS: Influenza A - CEPHEID Flu A POSITIVE (NEGATIVE); Influenza B - CEPHEID Flu B NEGATIVE (NEGATIVE); Respiratory Syncytial Virus Negative (Negative)
[2023-11-19 21:23] LABS: COVID-19 CEPHEID 4-PLEX PCR Negative (Negative)
== END ==
PROVIDERS: Family Provider Registered Nurse Diabetes Educator; PCP Registered Nurse Diabetes Educator; Visit Provider Physician Assistant
DX: J18.9 Pneumonia, unspecified organism (principal); R05.9 Cough, unspecified
CPT/HCPCS: 0241U

== ENCOUNTER → 2023-11-19 16:53 | Outpatient (CLI) | payer OTHER, SELFPAY ==
[2022-06-26 14:06] VITALS: BMI 39.6
--- NOTE | 2023-11-19 17:54 | DI.RAD.S_ITS ---
PROCEDURE: XR CHEST 2V INDICATIONS: cough x 3 weeks, recent pneumonia TECHNIQUE: 2 views of the chest were acquired. COMPARISON: [facility], CT, CT CHEST WO CON, 09/23/2023, 10:32. [facility], CR, XR CHEST 2V, 10/26/2023, 16:43. [facility], CR, XR CHEST 2V, 09/22/2023, 8:16. FINDINGS: Surgical changes and devices: None. Lungs and pleura: Lungs appear clear. No pleural effusions or pneumothorax. Mediastinum: Mediastinal contours are normal. Heart size is normal. Bones and chest wall: No suspicious bony abnormalities. Soft tissues appear unremarkable. IMPRESSION: No acute cardiopulmonary abnormality is seen. Dictated by: Rashawn Daniel M.D. on 11/20/2023 at 9:36 Approved by: Rashawn Daniel M.D. on 11/20/2023 at 9:37
== END ==
PROVIDERS: Family Provider Registered Nurse Diabetes Educator; PCP Registered Nurse Diabetes Educator; Referring Provider Physician Assistant; Visit Provider Physician Assistant
DX: J18.9 Pneumonia, unspecified organism (principal); J40 Bronchitis, not specified as acute or chronic; R05.9 Cough, unspecified
CPT/HCPCS: 0241U; 71046

== ENCOUNTER → 2023-12-24 10:12 | Outpatient (CLI) | payer OTHER, SELFPAY ==
[2022-06-26 14:06] VITALS: BMI 39.6
[2023-12-24 15:32] LABS: Influenza A - CEPHEID Flu A NEGATIVE (NEGATIVE); Influenza B - CEPHEID Flu B NEGATIVE (NEGATIVE); Respiratory Syncytial Virus Negative (Negative)
[2023-12-24 15:42] LABS: COVID-19 CEPHEID 4-PLEX PCR Negative (Negative)
== END ==
PROVIDERS: Family Provider Registered Nurse Diabetes Educator; PCP Registered Nurse Diabetes Educator; Visit Provider Nurse Practitioner Family
DX: R05.9 Cough, unspecified (principal)
CPT/HCPCS: 0241U; 87070

== ENCOUNTER → 2024-01-11 10:30 | Outpatient (CLI) | payer OTHER, SELFPAY ==
[2022-06-26 14:06] VITALS: BMI 39.6
[2024-01-08 11:40] VITALS: BMI 39.6
--- NOTE | 2024-01-11 10:31 | DI.US.S_ITS ---
ULTRASOUND OF LEFT BREAST: 01/11/2024 CLINICAL: Follow up from addtional views. Comparison is made to exams dated: 10/07/2023 ultrasound, 10/07/2023 mammogram, 04/08/2023 mammogram, and 04/07/2022 mammogram - [facility]. Color flow and real-time ultrasound of the left breast were performed. There is a stable 2.1 cm x 1.5 cm x 7 cm lymph node in the left axillar. The eccentric cortical thickening seen previously is persists, but overall morphology is similar, with preserved fatty hilum. IMPRESSION: PROBABLY BENIGN The stable 2.1 cm x 1.5 cm x 7 cm axillary lymph node is probably benign. A follow-up ultrasound in 9 months is recommended (when patient is due for mammography) This exam was interpreted at Station ID: [id number]. Electronically Signed By: Tyler Ken M.D. lc/:01/11/2024 11:05:40 letter sent: Followup Recommended Ultrasound BI-RADS: 3 Probably benign
== END ==
PROVIDERS: Family Provider Registered Nurse Diabetes Educator; PCP Registered Nurse Diabetes Educator; Referring Provider Registered Nurse Diabetes Educator; Visit Provider Registered Nurse Diabetes Educator
DX: N63.20 Unspecified lump in the left breast, unspecified quadrant (principal); R59.0 Localized enlarged lymph nodes; R92.2 Inconclusive mammogram
CPT/HCPCS: 76642

== ENCOUNTER → 2024-02-05 08:26 | Outpatient (CLI) | payer OTHER, SELFPAY ==
[2024-01-08 11:40] VITALS: BMI 39.6
[2024-02-05 09:45] LABS: Add Manual Diff / Slide Review NO; Basophils Absolute Auto 0 /uL (0-100); Basophils Percent Auto 0.2 % (0-2); Eosinophils Absolute Auto 100 /uL (0-450); Eosinophils Percent Auto 1.8 % (2-4); Hematocrit 36.1 % (36-46); Hemoglobin 12.3 g/dL (12.0-16.0); Lymphocytes Absolute Auto 2000 /uL (1100-4500); Mean Corpuscular HGB Conc 34.1 % (30-36); Mean Corpuscular Hemoglobin 31.1 PG (26-34); Mean Corpuscular Volume 91.1 fL (80-100); Monocytes Absolute Auto 200 /uL (0-900); Monocytes Percent Auto 4.8 % (3-14); Neutrophils Absolute Auto 2600 /uL (1500-7000); Neutrophils Percent Auto 53.2 % (50-75); Platelet Count 149 X10^3/uL (150-400); Red Blood Cell Count 3.96 X10^6/uL (4.0-5.2); Red Cell Distribution Width 18.3 % (11.6-14.8)
== END ==
PROVIDERS: Family Provider Registered Nurse Diabetes Educator; PCP Registered Nurse Diabetes Educator; Referring Provider Internal Medicine Critical Care Medicine; Visit Provider Internal Medicine Critical Care Medicine
DX: J45.909 Unspecified asthma, uncomplicated (principal)
CPT/HCPCS: 36415; 82785; 85025; 86003

== ENCOUNTER → 2024-02-24 13:51 | Outpatient (CLI) | payer OTHER, SELFPAY ==
[2024-01-08 11:40] VITALS: BMI 39.6
--- NOTE | 2024-02-24 13:53 | DI.RAD.S_ITS ---
PROCEDURE: XR CHEST 2V INDICATIONS: cough TECHNIQUE: 2 views of the chest were acquired. COMPARISON: [facility], CR, XR CHEST 2V, 11/19/2023, 17:52. [facility], CR, XR CHEST 2V, 10/26/2023, 16:43. FINDINGS: Surgical changes and devices: None. Lungs and pleura: Lungs are clear. No pleural effusions or pneumothorax. Mediastinum: Mediastinal contours are normal. Heart size is normal. Bones and chest wall: No suspicious bony abnormalities. Soft tissues appear unremarkable. IMPRESSION: No acute cardiopulmonary abnormality is seen. Dictated by: Mendez Traore M.D. on 02/24/2024 at 15:41 Approved by: Mendez Traore M.D. on 02/24/2024 at 15:41
== END ==
PROVIDERS: Family Provider Registered Nurse Diabetes Educator; PCP Registered Nurse Diabetes Educator; Referring Provider Internal Medicine Critical Care Medicine; Visit Provider Internal Medicine Critical Care Medicine
DX: J18.9 Pneumonia, unspecified organism (principal); J45.901 Unspecified asthma with (acute) exacerbation
CPT/HCPCS: 71046

== ENCOUNTER → 2024-04-07 14:13 | Outpatient (CLI) | payer OTHER, SELFPAY ==
[2024-01-08 11:40] VITALS: BMI 39.6
== END ==
PROVIDERS: Family Provider Registered Nurse Diabetes Educator; PCP Registered Nurse Diabetes Educator; Referring Provider Internal Medicine Critical Care Medicine; Visit Provider Internal Medicine Critical Care Medicine
DX: J45.901 Unspecified asthma with (acute) exacerbation (principal); R05.9 Cough, unspecified
CPT/HCPCS: 94060; 94726; 94729

== ENCOUNTER → 2024-04-16 12:19 | Outpatient (CLI) | payer OTHER, SELFPAY ==
[2024-01-08 11:40] VITALS: BMI 39.6
== END ==
PROVIDERS: Family Provider Registered Nurse Diabetes Educator; PCP Registered Nurse Diabetes Educator; Referring Provider Student in an Organized Health Care Education/Training Program; Visit Provider Student in an Organized Health Care Education/Training Program
DX: R05.9 Cough, unspecified (principal)
CPT/HCPCS: 87070; 87205

== ENCOUNTER → 2024-04-23 09:44 | Outpatient (CLI) | payer OTHER, SELFPAY ==
[2024-01-08 11:40] VITALS: BMI 39.6
--- NOTE | 2024-04-23 09:44 | DI.CT.S_ITS ---
PROCEDURE: CT CHEST HIGH RESOLUTION INDICATIONS: JOEL PNA previous, continues to have cough TECHNIQUE: Noncontrast 1.0 and 5.0 mm thick contiguous axial sections from the pulmonary apex to the posterior costophrenic angles, with 7 mm thick coronal and sagittal MIP reformats. 1 mm thick dynamic expiratory images acquired through the upper, mid, and lower lungs. 1.0 mm thick axial sections acquired from the juan manuel to the posterior costophrenic angles in the prone end-inspiration position. For radiation dose reduction, the following was used: automated exposure control, adjustment of mA and/or kV according to patient size. COMPARISON: [facility], CR, XR CHEST 2V, 02/24/2024, 13:54. FINDINGS: Image quality: Diagnostic. Lower Neck: No enlarged lymph nodes. Thyroid: No thyroid nodules which require sonographic follow up, per consensus guidelines. Axillae: No enlarged lymph nodes. Chest Wall: Unremarkable. Bones: Unremarkable. Lungs and Pleura: No pneumothorax or pleural effusions. Tree-in-bud nodules in the right lower lobe. Diffuse air trapping. No interstitial thickening. Heart: Heart size is normal. No pericardial effusion. Thoracic Vessels: The aorta and pulmonary arteries demonstrate normal size. Mediastinum and Tiffanie: No enlarged lymph nodes. Esophagus: No wall thickening. No hiatal hernia. Upper Abdomen: Visualized upper abdomen solid organs and bowel loops appear normal. IMPRESSION: Small foci of tree-in-bud nodules in the right lower lobe, favoring infectious or inflammatory bronchiolitis, less likely aspiration. Diffuse air trapping, which can be seen in the setting of hypersensitivity pneumonitis or small airways disease. Dictated by: Bry Muñoz M.D. on 04/24/2024 at 10:26 Approved by: Bry Muñoz M.D. on 04/24/2024 at 10:30
== END ==
LOC: CT 09:44
PROVIDERS: Family Provider Registered Nurse Diabetes Educator; PCP Registered Nurse Diabetes Educator; Referring Provider Student in an Organized Health Care Education/Training Program; Visit Provider Student in an Organized Health Care Education/Training Program
DX: R06.00 Dyspnea, unspecified (principal); R91.8 Other nonspecific abnormal finding of lung field
CPT/HCPCS: 71250

== ENCOUNTER → 2024-04-27 07:18 | Outpatient (CLI) | payer OTHER, SELFPAY ==
[2024-01-08 11:40] VITALS: BMI 39.6
== END ==
PROVIDERS: Family Provider Registered Nurse Diabetes Educator; PCP Registered Nurse Diabetes Educator; Referring Provider Student in an Organized Health Care Education/Training Program; Visit Provider Student in an Organized Health Care Education/Training Program
DX: J47.1 Bronchiectasis with (acute) exacerbation (principal)
CPT/HCPCS: 87070; 87205

== ENCOUNTER → 2024-10-24 13:30 | Outpatient (CLI) | payer OTHER, SELFPAY ==
[2024-01-08 11:40] VITALS: BMI 39.6
--- NOTE | 2024-10-24 13:32 | DI.MG.S_ITS ---
MM diagnostic mammo BI, US breast LT limited: 10/24/2024 BI-RADS: 2 CLINICAL: 43-year old female for bilateral diagnostic mammogram and left diagnostic breast ultrasound. The patient presents for short interval follow-up. Tyrer-Cuzick lifetime risk of 6.9%. No personal or first-degree family history of breast cancer. PRIOR EXAMS 01/11/2024, 10/07/2023, 04/08/2023, 04/07/2022, 04/04/2021, 02/09/2020, 01/28/2019. MAMMOGRAPHY TECHNIQUE: 2D and 3D (tomosynthesis) digital mammographic views obtained, with additional images as needed for full coverage. Current study was also evaluated with a Computer Aided Detection (CAD) system. ULTRASOUND TECHNIQUE Real-time núñez scale and color doppler imaging of the area of clinical interest was performed with image documentation. Exam is limited to the left axilla. DENSITY B. There are scattered areas of fibroglandular density. MAMMOGRAPHY FINDINGS Bilateral: No suspicious mass, asymmetry, microcalcification, or other abnormality seen. No significant change from comparison. ULTRASOUND FINDINGS Left: Axilla, measuring 2 x 0.8 x 1.3 cm: Correlating with prior imaging concern there is a normal-appearing lymph node present. Doppler shows hilar vascularity. Previously described eccentric cortical thickening is no longer seen. Visualized lymph nodes demonstrate normal fatty monica and uniformly thin cortex. IMPRESSION: Right * No evidence of malignancy. Left * No evidence of malignancy with benign findings. RECOMMENDATIONS Bilateral * Annual screening mammography. COMMENTS: Findings and recommendations were conveyed to the patient during today's evaluation. OVERALL ASSESSMENT CATEGORY BI-RADS-2: Benign. The [employer] recommends annual screening mammography beginning at age 40 for women with average risk of breast cancer. ELECTRONICALLY SIGNED: Roz Ruiz M.D. on 10/24/2024 at 03:03:02 PM PT Interpreting Station ID: [id number]
== END ==
LOC: MAMMO 13:31
PROVIDERS: Family Provider Registered Nurse Diabetes Educator; PCP Registered Nurse Diabetes Educator; Referring Provider Registered Nurse Diabetes Educator; Visit Provider Registered Nurse Diabetes Educator
DX: R92.8 Other abnormal and inconclusive findings on diagnostic imaging of breast (principal)
CPT/HCPCS: 76642; 77066; G0279

== ENCOUNTER 2024-10-27 07:56 | Day surgery (SDC) | payer OTHER, SELFPAY ==
[2024-01-08 11:40] VITALS: BMI 39.6
--- NOTE | 2024-10-27 | PATH_ITS ---
[facility] Accession Number: [id number] No. of containers..01 Tissue . 01 Material submitted: . colon - ASCENDING COLON POLYP . 01 Diagnosis: ASCENDING COLON POLYP: Sessile serrated adenoma. MRV 10/28/2024 1356 Local . 01 Electronically signed: . Conrado Jensen MD, PhD, Pathologist NPI- [id number] . 01 Gross description: . ASCENDING COLON POLYP: Received in formalin are 3 fragment(s) of rodriguez, soft tissue measuring 0.5 x 0.5 x 0.1 cm to 1.1 x 0.4 x 0.2 cm submitted entirely in 1 cassette(s) /LING 10/27/2024 2335 Local . 01 Pathologist provided ICD-10: D12.2 . 01 CPT . 333097 Specimen Comment: A courtesy copy of this report has been sent to [facility] Performed at: [address] [address], [place], [place] [id number] MD Frankie Ayala MD Phone: [phone]
[2024-10-27 08:42] VITALS: BP 108/73; PULSE 78; RESP 17; TEMP 36.3; O2SAT 94
[2024-10-27] MEDS: LACTATED RINGERS 1,000 ML 42 ML IV (08:45)
--- NOTE | 2024-10-27 08:49 | PM.HP.IH.1 ---
History of Present Illness History of Present Illness Date Patient Seen: 10/27/24 Time Patient Seen: 08:49 Chief complaint: Colonoscopy Narrative: 43-year-old white female presents for initial screening colonoscopy. No family history of colon cancer Crohn's disease or ulcerative colitis. No changes in bowel habits. 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 Other Family history of ischemic heart disease Social History household members: spouse Smoking Status: Never smoker second hand exposure: No alcohol intake: current substance use type: does not use Meds Home Medications and Allergies Home Medications Medication Instructions Recorded Confirmed Type nabumetone 500 mg tablet 500 mg PO BID 04/15/22 10/27/24 History Oral Appliance for Mild MANDA #1 ea 06/03/22 02/05/24 Rx estradiol 0.01% (0.1 mg/gram) 0.5 g vaginal 2XW #42.5 grams 09/03/22 10/27/24 Rx vaginal cream (Estrace) folic acid 1 mg tablet 1 mg PO DAILY 04/01/23 10/27/24 History hydroxychloroquine 200 mg tablet 200 mg PO BID 04/01/23 10/27/24 History syringe with needle 1 mL 25 gauge #50 ea 04/01/23 02/05/24 History x 5/8 (Eclipse Syringe) inhalational spacing device #1 ea 08/19/23 02/05/24 Rx (Aerochamber MV spacer) levothyroxine 50 mcg tablet 50 mcg PO DAILY #90 tabs 10/28/23 10/27/24 Rx liothyronine 5 mcg tablet 2.5 mcg (1/2 x 5 mcg) PO BID #90 10/28/23 10/27/24 Rx tabs valacyclovir 1 gram tablet See Rx Instructions .Route 11/11/23 10/27/24 Rx (Valtrex) .COMPLEX #20 tabs aspirin 81 mg tablet,delayed 81 mg PO DAILY 02/05/24 10/27/24 History release (Adult Low Dose Aspirin) methotrexate sodium 25 mg/mL 25 mg IM QWEEK 02/05/24 10/27/24 History injection solution apremilast 30 mg tablet (Otezla) 30 mg PO BID 08/16/24 10/27/24 History bupropion HCl 150 mg 24 hr tablet, 150 mg PO QAM #90 tabs 08/16/24 10/27/24 Rx extended release (Wellbutrin XL) escitalopram oxalate 10 mg tablet 10 mg PO DAILY #90 tabs 08/16/24 10/27/24 Rx (Lexapro) sulfasalazine 500 mg tablet 500 mg PO TID 08/16/24 10/27/24 History Allergies Allergy/AdvReac Type Severity Reaction Status Date / Time nickel [NICKEL] Allergy Intermediate SKIN Verified 08/16/24 15:59 IRRITATION TAPES Allergy Intermediate SKIN Uncoded 08/16/24 15:59 IRRITATION Review of Systems Review of Systems ROS: Yes All systems reviewed with the patient and are negative except as otherwise documented Exam Vital Signs (past 8 hours): - 10/27/24 08:42 Temperature 97.3 F L Pulse Rate 78 Respiratory Rate 17 Blood Pressure 108/73 Pulse Oximetry 94 Oxygen Delivery Method Room Air Oxygen Delivery Method Room Air Narrative Exam Narrative: Gen: NAD, sitting comfortably in bed, appears well HEENT: Sclera are anicteric, head is normocephalic and atraumatic, trachea is midline. CV: RRR, no JVD Resp: clear to auscultation bilaterally, equal chest wall movement bilaterally Abd: soft, nontender, normoactive bowel sounds Ext: no edema, full range of motion Neuro: Cranial nerves II-XII grossly intact, no focal deficits Skin: No erythema or ecchymosis Assessment & Plan Assessment and plan (1) Colon cancer screening: Status: Acute Assessment & Plan narrative: Patient presents for colonoscopy Risks, benefits, alternatives to colonoscopy explained, including but not limited to bowel perforation or other serious complication requiring surgery at less than 1 in 5000 colonoscopies, abdominal pain, cramping or bleeding and less than 1% of colonoscopies, and the chances that we find a diagnosis that would require further intervention of about 2%. Patient agrees to proceed. Time-Based Coding :: [TOTAL MINUTES] spent with patient and on the chart (including review of chart, obtaining history, exam, reviewing outside data, placing orders, documenting exam and treatment plan, and counseling patient) on [DATE]. [employer] Employee [employer] Intern Document charge(s): No
[2024-10-27] MEDS: ALBUTEROL/IPRATROPIUM 3 ML AMPUL INH (08:50)
--- NOTE | 2024-10-27 08:50 | SUR.PREOP ---
See order for Duoneb from [facility] for exp wheeze and coarse bases and chronic prod cough for 1 year.
--- NOTE | 2024-10-27 09:16 | PM.OP.COLON ---
Operative Date/Time/Diagnoses Date of procedure: 10/27/24 Time of procedure: 09:16 Pre-op diagnosis: Colon screening Post-op diagnosis: same (Ascending colon polyp) Procedure & Clinicians Study performed: Colonoscopy with cold snare polypectomy Same procedure as scheduled: Yes Indications: Colon screening Surgeon: Warren Agarwal Procedure Notes SCOAP/Timeout: Performed Procedure in detail: Time-out was performed. Mac was induced. Patient was placed in left lateral decubitus position. The perineum was inspected without any gross abnormality. Lubricated pediatric colonoscope was inserted and advanced to the cecum. The terminal ileum was intubated. The colonoscope was withdrawn slowly inspecting the circumference of the colon. Ascending colon polyp was noted and completely removed with cold snare polypectomy and retrieved. Very small polyps may have been missed, prep quality was adequate. Retroflexed view of the rectum showed small, non prolapsed nonbleeding internal hemorrhoids. The scope was withdrawn the patient was taken to PACU in good condition. Scope withdrawal time: 10 Findings: polyp(s) Specimen(s): other (1. Ascending colon polyp) Complications: none Post-procedure Recommendations: Colonoscopy in 5 years (Next colonoscopy in 7 years) Follow up: as needed Disposition: PACU
[2024-10-27 09:18] VITALS: BP 85/58; PULSE 80; RESP 12; O2SAT 94
[2024-10-27 09:24] VITALS: BP 89/52; PULSE 76; RESP 20; O2SAT 97
[2024-10-27 09:29] VITALS: BP 90/56; PULSE 73; RESP 14; O2SAT 96
== END 2024-10-27 09:43 | disposition home or self-care (01) ==
PROVIDERS: Family Provider Registered Nurse Diabetes Educator; PCP Registered Nurse Diabetes Educator; Referring Provider Surgery; Visit Provider Surgery
PROC: 0DJD8ZZ Inspection of Lower Intestinal Tract, Via Natural or Artificial Opening Endoscopic (ICD-10-PCS; CPT 45378; principal; 2024-10-27 09:00)
DX: Z12.11 Encounter for screening for malignant neoplasm of colon (principal); K64.8 Other hemorrhoids; D12.2 Benign neoplasm of ascending colon
CPT/HCPCS: 45385; J2704

== ENCOUNTER 2025-05-09 15:31 | Emergency (ER) | payer OTHER, SELFPAY ==
[2024-01-08 11:40] VITALS: BMI 39.6
[2025-05-09] VITALS (9 sets, daily range): BP systolic 103–137; BP diastolic 58–76; PULSE 71–78; RESP 17–18; TEMP 36.4; O2SAT 94–100; BMI 40.3
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
[2025-05-09] MEDS: CYCLOBENZAPRINE 10 MG TABLET PO (21:04)
[2025-05-09] MEDS: KETOROLAC 30 MG/ML VIAL IM (21:04)
== END 2025-05-09 21:21 | disposition home or self-care (01) ==
PROVIDERS: Emergency Provider Emergency Medicine; Family Provider Registered Nurse Diabetes Educator; PCP Registered Nurse Diabetes Educator
DX: S39.012A Strain of muscle, fascia and tendon of lower back, initial encounter (principal); W50.0XXA Accidental hit or strike by another person, initial encounter
CPT/HCPCS: 96372; 99283; J1885

== ENCOUNTER → 2025-05-15 14:52 | Outpatient (CLI) | payer OTHER, SELFPAY ==
[2024-01-08 11:40] VITALS: BMI 39.6
[2025-05-15 17:02] LABS: TSH w/ Reflex to FT4 1.55 uIU/mL (0.47-4.68)
== END ==
PROVIDERS: Family Provider Registered Nurse Diabetes Educator; PCP Registered Nurse Diabetes Educator; Referring Provider Registered Nurse Diabetes Educator; Visit Provider Registered Nurse Diabetes Educator
DX: E03.8 Other specified hypothyroidism (principal); E06.3 Autoimmune thyroiditis
CPT/HCPCS: 36415; 84443